=== PATIENT | female | born 1955 | race Caucasian/White ===

== ENCOUNTER 2023-02-18 14:30 | Outpatient (RCR) | payer MEDICARE, SELFPAY | END 2023-06-18 23:59 | disposition home or self-care (01) | PROVIDERS: PCP Family Medicine; Visit Provider Family Medicine | DX: G56.03 Carpal tunnel syndrome, bilateral upper limbs (principal); Z51.89 Encounter for other specified aftercare | CPT/HCPCS: 97035; 97110; 97140; 97165; 97535; L3906; X5282 ==

== ENCOUNTER 2023-06-18 10:00 | Outpatient (RCR) | payer MEDICARE, SELFPAY | END 2023-06-23 10:55 | disposition home or self-care (01) | PROVIDERS: PCP Family Medicine; Visit Provider Orthopaedic Surgery | DX: M17.12 Unilateral primary osteoarthritis, left knee (principal); M25.562 Pain in left knee; M25.662 Stiffness of left knee, not elsewhere classified; R26.2 Difficulty in walking, not elsewhere classified; M62.81 Muscle weakness (generalized); Z51.89 Encounter for other specified aftercare | CPT/HCPCS: 97110; 97140; 97161 ==

== ENCOUNTER 2024-03-22 09:45 | Outpatient (RCR) | payer MEDICARE, SELFPAY | END 2024-03-22 10:57 | disposition home or self-care (01) | PROVIDERS: PCP Family Medicine; Visit Provider Orthopaedic Surgery | DX: Z96.652 Presence of left artificial knee joint (principal); Z51.89 Encounter for other specified aftercare; M25.562 Pain in left knee; R53.1 Weakness; Z74.09 Other reduced mobility; R26.9 Unspecified abnormalities of gait and mobility | CPT/HCPCS: 97110; 97112; 97116; 97140; 97161 ==